=== PATIENT | male | born 2000 | race Caucasian/White ===

== ENCOUNTER 2020-07-05 22:10 | Emergency (ER) | payer BC ==
[~2020-07-05] VITALS: Ht 203.2 cm; Wt 77.3 kg
[2020-07-05 22:13] VITALS: TEMP 97.3
[2020-07-05 23:43] VITALS: BP 154/84; PULSE 89
== END 2020-07-05 23:43 | disposition home or self-care (01) ==
LOC: COL.ER 22:10
DX: U07.1 COVID-19 (principal)
CPT/HCPCS: J1885